=== PATIENT | female | born 1960 | race Caucasian/White ===

== ENCOUNTER 2020-08-11 06:30 | Outpatient (REF) | payer OTHER, SELFPAY | END 2020-08-11 06:31 | disposition home or self-care (01) | LOC: HO.LAB 06:30 | PROVIDERS: Visit Provider Internal Medicine | DX: Z20.828 Contact with and (suspected) exposure to other viral communicable diseases (principal) | CPT/HCPCS: C9803; U0003 ==

== ENCOUNTER 2020-08-17 07:36 | Emergency (ER) | payer OTHER, SELFPAY ==
[2020-08-17 07:43] VITALS: BP 181/96; PULSE 83; RESP 20; TEMP 36.8; O2SAT 99; BMI 26.6
--- NOTE | 2020-08-17 07:51 | ED.ABDPAIN ---
HPI - Abdominal Pain General Chief Complaint: Abdominal Pain Stated Complaint: ?kidney stone Time Seen by Provider: 08/17/20 07:51 Source: patient Mode of arrival: ambulatory Limitations: no limitations History of Present Illness MD elicited complaint: flank pain Pertinent past history: kidney stones Onset (ago): hour(s) (started this AM) Pain Consistency: constant Location: L flank Severity: similar to previous episodes Quality: stabbing Exacerbating factors: nothing Relieving factors: nothing Context: history of similar episodes Associated symptoms: nausea Related Data Previous Rx's Medication Instructions Recorded ondansetron 4 mg PO Q8H PRN #20 tab 08/17/20 oxycodone 5 mg PO Q6H PRN #14 tab 08/17/20 Allergies Allergy/AdvReac Type Severity Reaction Status Date / Time Sulfa (Sulfonamide AdvReac Joint Pain Verified 08/17/20 07:48 Antibiotics) Review of Systems Review of Systems Constitutional : No Fever, No Chills ENT/Mouth : No sore throat Eyes: No Eye Pain, No Swelling, No Redness Cardiovascular : No Chest Pain, No SOB Respiratory : No Cough, No Sputum, No Wheezing Gastrointestinal : positive Nausea, no Vomiting, No Diarrhea, positive abdominal pain Genitourinary : positive Dysuria, positive urinary frequency, no Hematuria, positive Flank Pain, no hesitancy Musculoskeletal : No joint pain, No Myalgias Skin : No Skin Lesions, No rash Neuro : No Weakness, No Numbness, No Headache Psych : No Anxiety/Panic, No Depression All other systems reviewed and are negative Physical Exam Vital Signs: Vital Signs: Last Vital Signs Temp 98.3 F 08/17/20 07:43 Pulse 62 08/17/20 08:44 Resp 16 08/17/20 08:44 BP 113/67 08/17/20 08:44 Pulse Ox 99 08/17/20 07:43 Body Mass Index 26.6 Appearance: Alert. Oriented X3. in pain, walking around, anxious, mild acute distress. Eyes: Pupils equal, round and reactive to light. ENT: Pharynx normal. Neck: Normal inspection. Neck supple. CVS: Normal heart rate and rhythm. Pulses normal. Respiratory: No respiratory distress. Breath sounds normal. Abdomen: Soft and mild L abdominal and L flank tttp Skin: Skin warm and dry. Normal skin color. Normal skin turgor. Extremities: No lower extremity edema. No calf ttp Neuro: Oriented X 3. No motor deficit. No sensory deficit. Course Course Course Narrative: no vomiting, pain well controlled. stable for DC MDM - Abdominal Pain MDM Narrative Medical decision making narrative: 60 yo female with hx of renal colic s/p stone extractions/lithotripsy followed by [facility] comes in with abrupt onset L flank pain - consistent with prior bouts of renal colic, at this time will need labs, UA, IV morphine for pain, IV Toradol - dispo per results and findings. Lab Data Result diagrams: 08/17/20 08:05 08/17/20 08:05 Labs: Lab Results 08/17/20 08/17/20 08/17/20 Range/Units 08:05 08:05 08:05 WBC 8.4 (4.8-10.8) X10*3/uL RBC 4.38 (4.20-5.50) X10*6/uL Hgb 13.3 (12.0-16.0) g/dl Hct 39.5 (37-47) % MCV 90.2 (80-98) fL MCH 30.4 (27.0-33.0) pg MCHC 33.7 (31.0-35.0) g/dl RDW 12.0 (11.0-16.0) % Plt Count 237 (160-400) X10*3/uL MPV 9.9 (9.4-12.3) fL Immature Gran % (Auto) 0.2 (0.0-0.4) % Neut % (Auto) 71.4 (45-73) % Lymph % (Auto) 21.0 (20-40) % Barnes % (Auto) 6.1 (2-11) % Eos % (Auto) 1.1 (0-4) % Baso % (Auto) 0.2 (0-2) % Lymph # (Auto) 1.8 (1.2-4.9) X10*3/uL Barnes # (Auto) 0.5 (0.1-1.2) X10*3/uL Eos # (Auto) 0.1 (0.0-0.4) X10*3/uL Baso # (Auto) 0.0 (0.0-0.2) X10*3/uL Abs Immat Gran (auto) 0.02 (0.00-0.03) X10*3/uL Absolute Neuts (auto) 6.0 (2.0-8.3) X10*3/uL Absolute Nucleated RBC 0.000 (0.0-0.012) X10*3/uL Nucleated RBC % (auto) 0.0 (0.0-0.2) /100WBC Hold Blue Top SEE NOTE Sodium 140 (135-145) mmol/L Potassium 4.0 (3.3-5.1) mmol/l Chloride 105 (96-108) mmol/L Carbon Dioxide 24 (22-29) mmol/L Anion Gap 15 (12-20) BUN 27 H (9-16) mg/dL Creatinine 0.76 (0.5-1.4) mg/dL Estim Creat Clear Calc 80.3 Estimated GFR > 60 Random Glucose 102 (60-115) mg/dL Calcium 9.4 (8.4-10.2) mg/dL Magnesium (1.6-2.6) mg/dL Total Bilirubin (0.0-1.0) mg/dL Direct Bilirubin (0.0-0.5) mg/dL AST (5-31) U/L ALT (0-31) U/L Alkaline Phosphatase (39-117) U/L Total Protein (6.5-8.0) g/dL Albumin (3.5-5.0) g/dL Lipase (8-78) U/L Urine Color Urine Appearance Urine pH (5.0-8.0) Ur Specific [place] (1.005-1.025) Urine Protein (NEG-TRACE) MG/DL Urine Glucose (UA) (NEG) MG/DL Urine Ketones (NEG) MG/DL Urine Blood (NEG) Urine Nitrite (NEG) Ur Leukocyte Esterase (NEG) Urine RBC (0) /HPF Urine WBC (0-4) /HPF Ur Squamous Epith Cells /LPF Urine Bacteria /LPF 08/17/20 08/17/20 Range/Units 08:05 08:05 WBC (4.8-10.8) X10*3/uL RBC (4.20-5.50) X10*6/uL Hgb (12.0-16.0) g/dl Hct (37-47) % MCV (80-98) fL MCH (27.0-33.0) pg MCHC (31.0-35.0) g/dl RDW (11.0-16.0) % Plt Count (160-400) X10*3/uL MPV (9.4-12.3) fL Immature Gran % (Auto) (0.0-0.4) % Neut % (Auto) (45-73) % Lymph % (Auto) (20-40) % Barnes % (Auto) (2-11) % Eos % (Auto) (0-4) % Baso % (Auto) (0-2) % Lymph # (Auto) (1.2-4.9) X10*3/uL Barnes # (Auto) (0.1-1.2) X10*3/uL Eos # (Auto) (0.0-0.4) X10*3/uL Baso # (Auto) (0.0-0.2) X10*3/uL Abs Immat Gran (auto) (0.00-0.03) X10*3/uL Absolute Neuts (auto) (2.0-8.3) X10*3/uL Absolute Nucleated RBC (0.0-0.012) X10*3/uL Nucleated RBC % (auto) (0.0-0.2) /100WBC Hold Blue Top Sodium (135-145) mmol/L Potassium (3.3-5.1) mmol/l Chloride (96-108) mmol/L Carbon Dioxide (22-29) mmol/L Anion Gap (12-20) BUN (9-16) mg/dL Creatinine (0.5-1.4) mg/dL Estim Creat Clear Calc Estimated GFR Random Glucose (60-115) mg/dL Calcium (8.4-10.2) mg/dL Magnesium 1.9 (1.6-2.6) mg/dL Total Bilirubin 0.6 (0.0-1.0) mg/dL Direct Bilirubin 0.2 (0.0-0.5) mg/dL AST 22 (5-31) U/L ALT 20 (0-31) U/L Alkaline Phosphatase 71 (39-117) U/L Total Protein 7.2 (6.5-8.0) g/dL Albumin 4.4 (3.5-5.0) g/dL Lipase 47 (8-78) U/L Urine Color YELLOW Urine Appearance CLEAR Urine pH 5.0 (5.0-8.0) Ur Specific [place] >= 1.030 H (1.005-1.025) Urine Protein NEG (NEG-TRACE) MG/DL Urine Glucose (UA) NEG (NEG) MG/DL Urine Ketones NEG (NEG) MG/DL Urine Blood 2+ H (NEG) Urine Nitrite NEG (NEG) Ur Leukocyte Esterase NEG (NEG) Urine RBC 5-9 H (0) /HPF Urine WBC 0 (0-4) /HPF Ur Squamous Epith Cells TRACE /LPF Urine Bacteria NONE /LPF Discharge Plan Discharge Clinical Impression: Calculus of kidney Patient Disposition: Home, Self-Care Instructions: Renal Colic (ED) Additional Instructions: on CT scan 3mm left sided stone likely just at bladder, there is a possible small aneurysm (dilation) of your R right artery - your doctor can follow up with a non emergent CT scan to further evaluate, this was an incidental finding. return to ED for any worsening symptoms or concerns IF NOT BETTER IN 2 DAYS PLEASE CALL YOUR UROLOGIST Prescriptions: New ondansetron 4 mg tablet,disintegrating 4 mg PO Q8H PRN (Reason: nausea and vomiting) Qty: 20 RF: 0 oxycodone 5 mg tablet 5 mg PO Q6H PRN (Reason: pain) Qty: 14 RF: 0 Stand Alone Forms: Work/School Release [facility] Past Medical History Attestation statement: The following information was validated with the patient. Medical History HTN (hypertension) Kidney stone Surgical History H/O lithotripsy History of extraction of renal calculus Social History Social History Alcohol intake: never Smoking Status: Never smoker Use of substances other than those prescribed or required for medical reasons: No Advance Directives: No Advance Directives Information Provided: Yes
--- NOTE | 2020-08-17 07:52 | CT_ITS ---
EXAMINATION: CT ABDOMEN AND PELVIS WITHOUT CONTRAST CLINICAL INFORMATION: Flank pain. Evaluate for stone. COMPARISON: None TECHNIQUE: Multidetector volumetric imaging was performed from the superior aspect of the liver through the pubic symphysis. Sagittal and coronal reformatted images were obtained on the technologist's workstation. This CT examination was performed using dose optimization techniques as appropriate, variously including the following: *Automated exposure control *Adjustment of mA and/or kV according to patient size (this includes techniques or standardized protocols for targeted exams where dose is matched to indication/reason for exam; i.e. extremities or head) *Use of iterative reconstruction technique DLP: 578 mGy-cm FINDINGS: LUNG BASES: The visualized lung bases are unremarkable. LIVER, GALLBLADDER, AND BILIARY TREE: The liver is normal in size, shape, and attenuation. No focal hepatic lesion or biliary ductal dilatation is present. The gallbladder is unremarkable with no evidence of radiopaque gallstones, gallbladder wall thickening, or obvious pericholecystic inflammatory changes. PANCREAS: Unremarkable. SPLEEN: Unremarkable. ADRENAL GLANDS: Unremarkable. KIDNEYS AND URETERS: There is moderate left hydronephrosis and left ureteral dilatation down to the bladder. There are multiple bilateral renal stones. There are approximately 10 stones in the left kidney, largest measuring 3 mm in the midpole. There are approximately 10 stones in the right kidney, largest measuring 3 mm in the lower pole. There are bilateral low-attenuation renal lesions probably representing cysts measuring 1.5 cm in the lower pole of the right kidney and 1 cm exophytic to the lateral upper to midpole of the left kidney. BLADDER: The bladder is not optimally distended. There is a 3 mm calcification in the left side of the bladder suggestive of a small left UPJ or bladder stone. GASTROINTESTINAL TRACT: There is diverticulosis of the colon. Small and large bowel is otherwise unremarkable. Stomach is unremarkable. ABDOMINAL WALL: There is a small umbilical hernia containing fat. LYMPH NODES: Normal. VASCULAR: There is a curvilinear right renal artery calcification questionable for a small aneurysm. This measures 8 mm. PELVIC VISCERA: Unremarkable. OSSEOUS STRUCTURES: There is a 4 mm anterior subluxation of L4 with respect to L5. There are degenerative changes of the spine. CT/CT abdomen pelvis wo con IMPRESSION: Moderate left hydronephrosis and ureteral dilatation down to the bladder from a 3 mm left UVJ or bladder stone. Small bilateral renal stones. Small probable bilateral renal cysts. Question small 8 mm right renal artery aneurysm. This could be better evaluated with CTA. Mild diverticulosis of the colon.
[2020-08-17] MEDS: Ketorolac Tromethamine 30 MG/ML VIAL IVPUSH (08:07)
[2020-08-17] MEDS: 0.9 % Sodium Chloride 1,000 ML 999 ML IVCONT (08:07)
[2020-08-17] MEDS: ondansetron HCL 4 MG/2 ML VIAL IVPUSH (08:07)
[2020-08-17] MEDS: Morphine Sulfate 4 MG/ML CARTRIDGE IVPUSH (08:07)
[2020-08-17 08:16] LABS: MANUAL DIFF FLAG NO
[2020-08-17 08:17] LABS: Basophils Percent Auto 0.2 % (0-2); Eosinophils Absolute Auto 0.1 X10*3/uL (0.0-0.4); Eosinophils Percent Auto 1.1 % (0-4); Hematocrit 39.5 % (37-47); Hemoglobin 13.3 g/dl (12.0-16.0); Imm Gran Abs Auto 0.02 X10*3/uL (0.00-0.03); Imm Gran Pct Auto 0.2 % (0.0-0.4); Lymphocytes Absolute Auto 1.8 X10*3/uL (1.2-4.9); Mean Corpuscular HGB Conc 33.7 g/dl (31.0-35.0); Mean Corpuscular Hemoglobin 30.4 pg (27.0-33.0); Mean Corpuscular Volume 90.2 fL (80-98); Mean Platelet Volume 9.9 fL (9.4-12.3); Monocytes Absolute Auto 0.5 X10*3/uL (0.1-1.2); Monocytes Percent Auto 6.1 % (2-11); Neutrophils Percent Auto 71.4 % (45-73); Platelet Count 237 X10*3/uL (160-400); Red Blood Count 4.38 X10*6/uL (4.20-5.50); White Blood Count 8.4 X10*3/uL (4.8-10.8)
[2020-08-17 08:33] LABS: Glucose Urine UA NEG (NEG); Leukocyte Esterase Urine NEG (NEG); Nitrite Urine NEG (NEG); Specific Gravity - Urine >= 1.030 (1.005-1.025); Urine Blood 2+ (NEG); Urine Ketones NEG (NEG); Urine Protein NEG (NEG-TRACE)
[2020-08-17 08:38] LABS: Appearance Urine CLEAR; Color Urine YELLOW
[2020-08-17 08:44] VITALS: BP 113/67; PULSE 62; RESP 16
[2020-08-17 08:49] LABS: Anion Gap 15 (12-20); Blood Urea Nitrogen 27 mg/dL (9-16); Calcium 9.4 mg/dL (8.4-10.2); Carbon Dioxide 24 mmol/L (22-29); Chloride 105 mmol/L (96-108); Creatinine Clr Calc Pharmacy 80.3; Estimated Glomerular Filt Rate > 60; Glucose Random 102 mg/dL (60-115); Sodium 140 mmol/L (135-145)
[2020-08-17 08:52] LABS: Alanine Aminotransferase 20 U/L (0-31); Albumin Level 4.4 g/dL (3.5-5.0); Alkaline Phosphatase 71 U/L (39-117); Aspartate Amino Transferase 22 U/L (5-31); Bilirubin Direct 0.2 mg/dL (0.0-0.5); Bilirubin Total 0.6 mg/dL (0.0-1.0); Lipase 47 U/L (8-78); Magnesium 1.9 mg/dL (1.6-2.6); Total Protein 7.2 g/dL (6.5-8.0)
[2020-08-17 08:54] LABS: Squamous Epithelial Cell Urine TRACE /LPF; WBC Urine 0 /HPF (0-4)
[2020-08-17] MEDS: oxyCODONE HCl Immed Release 5 MG TABLET 10 MG PO (09:50)
== END 2020-08-17 11:22 | disposition home or self-care (01) ==
PROVIDERS: Emergency Provider Emergency Medicine; PCP Internal Medicine
DX: N20.0 Calculus of kidney (principal); R10.9 Unspecified abdominal pain; Z79.899 Other long term (current) drug therapy
CPT/HCPCS: 36415; 74176; 80048; 80076; 81001; 83690; 83735; 85025; 96361; 96374; 96375; 99283; 99284; J1885; J2270; J2405

== ENCOUNTER 2024-01-07 15:41 | Outpatient (AMB) | payer OTHER, SELFPAY ==
[2024-01-07 16:38] VITALS: BP 146/78; PULSE 101; TEMP 36.4; O2SAT 98; BMI 27.2
--- NOTE | 2024-01-07 16:38 | MHC.OFFWIV ---
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 She states this started about 3 days. 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 Her right ear is blocked. Its also painful. [facility] Medical History HTN (hypertension) Kidney stone Surgical History History of extraction of renal calculus H/O lithotripsy Social History Alcohol intake: never Patient Tobacco Use Status: Never used Tobacco Physical Exam Vital Signs: Last Vital Signs Temp 97.6 F 01/07/24 16:38 Pulse 101 H 01/07/24 16:38 BP 146/78 H 01/07/24 16:38 Pulse Ox 98 01/07/24 16:38 Oxygen Delivery Method Room Air 01/07/24 16:38 BMI result Body Mass Index 27.2 HEENT Other: Right ear: Ear canal is full of wax. Even gentle probing is eliciting discomfirt. Assessment & Plan Assessment & Plan (1) Impacted cerumen of right ear: Code(s): H61.21 - Impacted cerumen, right ear Plan: Debrox to be used for softening of the cerumen. will remove the wax once the canal is non tender. Medications: Discontinued ondansetron Discontinued Reason: Patient no longer taking 4 mg PO Q8H PRN 20 tabs 0RF nausea and vomiting oxycodone Discontinued Reason: Patient no longer taking 5 mg PO Q6H PRN 14 tabs 0RF pain Coding Level of Care Code Est Pt Level 3 (33148) Diagnoses Impacted cerumen of right ear H61.21
== END 2024-01-07 17:07 | disposition home or self-care (01) ==
PROVIDERS: PCP Internal Medicine; Visit Provider Internal Medicine
DX: H61.21 Impacted cerumen, right ear (principal)
CPT/HCPCS: 99213

== ENCOUNTER 2024-01-10 08:02 | Outpatient (AMB) | payer OTHER, SELFPAY ==
--- OUTSIDE RECORDS SUMMARY | 2024-01-10 08:03 | XMS_ITS | Continuity of Care Document ---
Author Organization [facility] ter Address [address] [place] [id number]- Care Team Providers Care It Project Lead Name Role Phone Pamela Barney MD Primary Care Physician Encounter [facility] Date(s): 09/19/19 - 09/23/[address] [address]- [facility] Discharge Disposition: A-D/C Home Attending Physician: Royce Garza MD Admitting Physician: Thaddeus Miller MD Referring Physician: Thaddeus Miller MD Allergies, Adverse Reactions, Alerts Substance Reaction Severity Status sulfa drugs pain in legs Active Immunizations Not Given Vaccine Date Status Refusal Reason pneumococcal 23-valent vaccine 09/20/19 Not Given Patient Refuses Medications apixaban 5 mg oral tablet 1 tablet = 5 mg, By Mouth, 2 times a day, as directed on package labeling, # 20 tablet, 0 Refills, Maintenance, 07/25/19 4:32:25 EST, Tablet Start Date: 07/25/19 Stop Date: 08/04/19 Status: Ordered Augmentin 875 mg-125 mg oral tablet 1 tablet, By Mouth, Every 12 hours, for 12 days, # 24 tablet, 0 Refills, Acute 10/05/19 7:40:00 EST, 09/23/19 7:40:00 EST, Tablet, [facility], 168, cm, 09/23/19 0:43:00 EST, Height, 68.1, kg, 09/19/19 18:12:00 EST, Dry Weight Start Date: 09/23/19 Stop Date: 10/05/19 Status: Ordered diltiazem 120 mg/24 hours oral capsule, extended release 120 mg, 1, capsule, By Mouth, Daily, # 10 capsule, Refills 0, Tot. Refills 0, Maintenance, 194:31:44 EST, Print Requisition Start Date: 07/25/19 Stop Date: 08/04/19 Status: Ordered Fish Oil 1000 mg oral capsule 1 capsule = 1,000 mg, By Mouth, Daily, 0 Refills, Maintenance, 12/10/16 8:55:41 Start Date: 12/10/16 Status: Ordered Flonase 50 mcg/inh nasal spray 1 sprays, Nares, Both, Daily in AM, PRN Other, 0 Refills, Maintenance, 12/10/16 8:56:44, [place] Start Date: 12/10/16 Status: Ordered lisinopril 5 mg oral tablet 5 mg, 1, tablet, By Mouth, Daily, # 30 tablet, Refills 0, Maintenance, 07/25/19 0:57:50 EST Start Date: 07/25/19 Status: Ordered Multivitamin Tablet 1 tablet, By Mouth, Daily, 0 Refills, Maintenance, 12/10/16 8:55:22, Tablet Start Date: 12/10/16 Status: Ordered Vitamin C 500 mg oral tablet 1 tablet = 500 mg, By Mouth, Daily, 0 Refills, Maintenance, 12/10/16 8:56:32 Start Date: 12/10/16 Status: Ordered Results Radiology Reports * Exam Date Time Procedure Performing Provider Status 09/19/19 8:44 PM C-Arm < 1 Hour China Kaiser; Roseline (Verified) Notes: (C-Arm < 1 Hour) Reason For Exam: right cysto RESULT: C-Arm < 1 Hour Urethrocystography Retrograde, C-Arm < 1 Hour INDICATION: Reason: right cysto COMPARISON: None FINDINGS: Fluoroscopy time: 6.8 seconds. Exposure: 1.42 mGy. 11 intraprocedural C-arm images demonstrating placement of right ureterovesicular stent. Radiologist was not in attendance. Please see procedure report for full details. IMPRESSION: As above. I have personally reviewed the images and I agree with this report. WSN: [id number] Dictated By: Leon Gan MD Dictated Date/Time: 09/22/19 9:15 am Reviewed By: Dillan Jacobo MD Signed By: Dillan Jacobo MD Signed Date/Time: 09/22/19 9:20 am Transcribed By: KARTIK Transcribed Date/Time: 09/22/19 8:45 am * Exam Date Time Procedure Performing Provider Status 09/19/19 8:44 PM Urethrocystography Retrograde Lynette Kaiser (Verified) Notes: (Urethrocystography Retrograde) Reason For Exam: right cysto RESULT: Urethrocystography Retrograde Urethrocystography Retrograde, C-Arm < 1 Hour INDICATION: Reason: right cysto COMPARISON: None FINDINGS: Fluoroscopy time: 6.8 seconds. Exposure: 1.42 mGy. 11 intraprocedural C-arm images demonstrating placement of right ureterovesicular stent. Radiologist was not in attendance. Please see procedure report for full details. IMPRESSION: As above. I have personally reviewed the images and I agree with this report. WSN: [id number] Dictated By: Leon Gan MD Dictated Date/Time: 09/22/19 9:15 am Reviewed By: Dillan Jacobo MD Signed By: Dillan Jacobo MD Signed Date/Time: 09/22/19 9:20 am Transcribed By: KARTIK Transcribed Date/Time: 09/22/19 8:45 am Vital Signs Most recent to oldest [Reference Range]: 1 2 3 Height 168 cm (09/23/19 12:43 AM) 168 cm (09/22/19 12:15 AM) 168 cm (09/20/19 12:15 AM) Weight 68.1 kg (09/19/19 7:38 PM) 68.1 kg (09/19/19 6:00 PM) Oxygen Saturation [94-100 %] 98 % (09/23/19 6:00 AM) 97 % (09/23/19 12:43 AM) 98 % (09/22/19 2:00 PM) Pulse Rate [55-90 bpm] 69 bpm (09/23/19 6:00 AM) 73 bpm (09/23/19 12:43 AM) 80 bpm (09/22/19 2:00 PM) Body Mass Index [18.5-24.99] 24.13 (09/19/19 7:38 PM) 24.13 (09/19/19 6:00 PM) Blood Pressure [90-138/55-84 mm Hg] 138/77mm Hg (09/23/19 6:00 AM) 132/83mm Hg (09/23/19 12:43 AM) 138/84mm Hg (09/22/19 2:00 PM) Respiratory Rate [16-30 br/min] 17 br/min (09/23/19 6:00 AM) 18 br/min (09/23/19 12:43 AM) 16 br/min (09/22/19 2:00 PM) Temperature [96.8-100.4 DegF] 98.7 DegF (09/23/19 6:00 AM) 97.9 DegF (09/23/19 12:43 AM) 98.9 DegF (09/22/19 2:00 PM) Mode of Delivery (Oxygen) Room air (09/23/19 6:00 AM) Room air (09/23/19 12:43 AM) Room air (09/22/19 2:00 PM) Blood pressure sites Arm, right (09/23/19 6:00 AM) Arm, right (09/23/19 12:43 AM) Arm, right (09/22/19 2:00 PM) Temperature Route Oral (09/23/19 6:00 AM) Oral (09/23/19 12:43 AM) Oral (09/22/19 2:00 PM) Dry Weight 68.1 kg (09/19/19 6:00 PM) Sensory deficits None (09/19/19 6:00 PM) Mobility assistance Independent (09/19/19 6:00 PM) Social History Social History Type Response Smoking Status Never (less than 100 in lifetime) entered on: 07/25/19 Sex
--- OUTSIDE RECORDS SUMMARY | 2024-01-10 08:03 | XMS_ITS | Continuity of Care Document ---
Author Organization [facility] al Address [address] [place] [address]- Care Team Providers Care Supervisor [employer] Name Role Phone Ector GUPTA, Pamela Nickerson Primary Care Physician [phone] Encounter [facility] Date(s): 09/19/19 - 09/19/[address] [address]- [place] Discharge Disposition: Transferred to short-term general hospit Attending Physician: Isai Welch DO Admitting Physician: Isai Welch DO Referring Physician: Not on Staff, Referring MD Allergies, Adverse Reactions, Alerts Substance Reaction Severity Status sulfa drugs pain in legs Active Medications apixaban 5 mg oral tablet 1 tablet = 5 mg, By Mouth, 2 times a day, as directed on package labeling, # 20 tablet, 0 Refills, Maintenance, 07/25/19 4:32:25 EST, Tablet Start Date: 07/25/19 Stop Date: 08/04/19 Status: Ordered diltiazem 120 mg/24 hours oral [...] PRN Other, 0 Refills, Maintenance, 12/10/16 8:56:44, [place] Start Date: 12/10/16 Status: Ordered lisinopril 5 [...] 12/10/16 8:56:32 Start Date: 12/10/16 Status: Ordered Vital Signs Most recent to oldest [Reference Range]: 1 2 3 Height 168 cm (09/19/19 3:03 PM) 168 cm (09/19/19 12:36 PM) 168 cm (09/19/19 8:39 AM) Weight 68.1 kg (09/19/19 3:03 PM) 68.1 kg (09/19/19 12:36 PM) 68.1 kg (09/19/19 8:39 AM) Oxygen Saturation [94-100 %] 98 % (09/19/19 3:03 PM) 100 % (09/19/19 12:36 PM) 98 % (09/19/19 8:38 AM) Pulse Rate [55-90 bpm] 99 bpm *H* (09/19/19 3:03 PM) 82 bpm (09/19/19 12:36 PM) 106 bpm *H* (09/19/19 8:38 AM) Body Mass Index [18.5-24.99] 24.13 (09/19/19 3:03 PM) 24.13 (09/19/19 12:36 PM) 24.13 (09/19/19 8:38 AM) Blood Pressure [90-138/55-84 mm Hg] 144/82mm Hg *H* (09/19/19 3:03 PM) 104/64mm Hg (09/19/19 12:36 PM) 151/82mm Hg *H* (09/19/19 8:38 AM) Respiratory Rate [16-30 br/min] 24 br/min (09/19/19 3:03 PM) 19 br/min (09/19/19 12:36 PM) 18 br/min (09/19/19 10:05 AM) Temperature [96.8-100.4 DegF] 101.1 DegF *H* (09/19/19 3:03 PM) 99.2 DegF (09/19/19 12:36 PM) 99.3 DegF (09/19/19 8:38 AM) Mode of Delivery (Oxygen) Room air (09/19/19 3:03 PM) Room air (09/19/19 12:36 PM) Room air (09/19/19 8:38 AM) Blood pressure sites Arm, right (09/19/19 3:03 PM) Arm, left (09/19/19 12:36 PM) Arm, left (09/19/19 8:38 AM) Temperature Route Oral (09/19/19 3:03 PM) Oral (09/19/19 12:36 PM) Oral (09/19/19 8:38 AM) Dry Weight 68.1 kg (09/19/19 3:03 PM) 68.1 kg (09/19/19 12:36 PM) 68.1 kg (09/19/19 8:39 AM) Social History Social History Type Response Smoking Status Never (less than 100 in lifetime) entered on: 07/25/19 Sex
--- OUTSIDE RECORDS SUMMARY | 2024-01-10 08:03 | XMS_ITS | Continuity of Care Document ---
Author Organization [facility] ter Address [address] [id number]- Care Team Providers Care Facepiece Line Supervisor Name Role Phone Pamela Barney MD Primary Care Physician [phone] [place] [facility] 10/23/19 - 10/24/[address] [id number] Discharge Disposition: A-D/C Home Attending Physician: Morris Singh MD Admitting Physician: Morris Singh MD Referring Physician: Morris Singh MD Allergies, Adverse Reactions, Alerts Substance Reaction [...] Date: 07/25/19 Stop Date: 08/04/19 Status: Ordered Colace sodium 100 mg oral capsule 100 mg, 1, capsule, By Mouth, 2 times a day, PRN, # 20 capsule, Refills 0, Tot. Refills 0, Maintenance, for constipation, 10/24/19 8:26:00 EST, Route to Pharmacy Electronically, [facility], 162.56, cm, 10/13/19 12:21:00 EST, Height, 68.4... Start Date: 10/24/19 Status: Ordered Flonase 50 mcg/inh nasal spray 1 sprays, Nares, Both, Daily in AM, PRN Other, 0 Refills, Maintenance, 12/10/16 8:56:44, [place] Start Date: 12/10/16 Status: Ordered lisinopril 5 mg oral tablet 5 mg, 1, tablet, By Mouth, Daily, # 30 tablet, Refills 0, Maintenance, 07/25/19 0:57:50 EST Start Date: 07/25/19 Status: Ordered Macrobid macrocrystals-monohydrate 100 mg oral capsule 1 capsule = 100 mg, By Mouth, 2 times a day, for 3 days, # 6 capsule, 0 Refills, Acute 10/27/19 8:24:00 EST, 10/24/19 8:24:00 EST, Capsule Start Date: 10/24/19 Stop Date: 10/27/19 Status: Ordered Macrobid macrocrystals-monohydrate 100 mg oral capsule 1 capsule = 100 mg, By Mouth, 2 times a day, for 3 days, # 6 capsule, 0 Refills, Acute 10/30/19 8:24:00 EST, 10/27/19 8:24:00 EST, Capsule, [facility], 162.56, cm, 10/13/19 12:21:00 EST, Height, 68.4, kg, 10/23/19 7:44:00 EST, Dry Weight Start Date: 10/27/19 Stop Date: 10/30/19 Status: Ordered Multivitamin Tablet 1 tablet, By Mouth, Daily, 0 Refills, Maintenance, 12/10/16 8:55:22, Tablet Start Date: 12/10/16 Status: Ordered oxybutynin 10 mg/24 hr oral tablet, extended release 1 tablet = 10 mg, By Mouth, Daily, # 30 tablet, 0 Refills, Maintenance, 10/13/19 11:40:00 EST, ER Tablet Start Date: 10/13/19 Status: Ordered oxyCODONE 5 mg oral tablet 5 mg, 1, tablet, By Mouth, Every 6 hours, PRN, for 3 days, # 8 tablet, Refills 0, Tot. Refills 0, Acute 10/27/19 8:24:00 EST, Pain , Severe, 10/24/19 8:24:00 EST, Print Requisition, Partial fill uponpatient request Start Date: 10/24/19 Stop Date: 10/27/19 Status: Ordered Vitamin C 500 mg oral tablet 1 tablet = 500 mg, By Mouth, Daily, 0 Refills, Maintenance, 12/10/16 8:56:32 Start Date: 12/10/16 Status: Ordered Problem List Condition Effective Dates Status Health Status Inform ant Staghorn renal calculus(Confirmed) Active Results Radiology Reports * Exam Date Time Procedure Performing Provider Status 10/23/19 10:54 AM C-Arm > 1 Hour Kindra Alston; Aut h (Verified) Notes: (C-Arm > 1 Hour) Reason For Exam: right renal calculus, right percutaneous nephrolithotomy RESULT: C-Arm > 1 Hour Urethrocystography Retrograde, C-Arm > 1 Hour INDICATION: Reason: right renal calculus, right percutaneous nephrolithotomy COMPARISON: 09/19/2019 FINDINGS: The first, precontrast image shows a vague opacity overlying the proximal loop of the ureteral stent and percutaneous stent in the renal pelvis. The renal pelvis and ureter are opacified showing no other filling defects. The tract through the percutaneous approach is dilated with a balloon. Subsequently the contrast isremoved. The stone is no longer evident. A wire extends from the nephrostomy opening down the ureter to the bladder. Contrast is seen in the bladder. No opacities are seen along the course of the wires. IMPRESSION: As above. WSN: [id number] Dictated By: Mark Cruz MD Dictated Date/Time: 10/23/19 1:45 pm Reviewed By: Mark Cruz MD Signed By: Mark Cruz MD Signed Date/Time: 10/23/19 1:45 pm Transcribed By: KARTIK Transcribed Date/Time: 10/23/19 1:38 pm * Exam Date Time Procedure Performing Provider Status 10/23/19 10:54 AM Urethrocystography Retrograde Kindra Alston; Auth (Verified) Notes: (Urethrocystography Retrograde) Reason For Exam: right renal calculus, right percutaneous nephrolithotomy RESULT: Urethrocystography Retrograde Urethrocystography Retrograde, C-Arm > 1 Hour INDICATION: Reason: right renal calculus, right percutaneous nephrolithotomy COMPARISON: 09/19/2019 FINDINGS: The first, precontrast image shows a vague opacity overlying the proximal loop of the ureteral stent and percutaneous stent in the renal pelvis. The renal pelvis and ureter are opacified showing no other filling defects. The tract through the percutaneous approach is dilated with a balloon. Subsequently the contrast isremoved. The stone is no longer evident. A wire extends from the nephrostomy opening down the ureter to the bladder. Contrast is seen in the bladder. No opacities are seen along the course of the wires. IMPRESSION: As above. WSN: [id number] Dictated By: Mark Cruz MD Dictated Date/Time: 10/23/19 1:45 pm Reviewed By: Mark Cruz MD Signed By: Mark Cruz MD Signed Date/Time: 10/23/19 1:45 pm Transcribed By: KARTIK Transcribed Date/Time: 10/23/19 1:38 pm Vital Signs Most recent to oldest [Reference Range]: 1 2 3 Oxygen Saturation [94-100 %] 99 % (10/24/19 11:51 AM) 100 % (10/24/19 7:43 AM) 100 % (10/24/19 3:52 AM) Pulse Rate [55-90 bpm] 93 bpm *H* (10/24/19 11:51 AM) 84 bpm (10/24/19 7:43 AM) 74 bpm (10/24/19 3:52 AM) Blood Pressure [90-138/55-84 mm Hg] 109/52mm Hg (10/24/19 11:51 AM) 134/79mm Hg (10/24/19 7:43 AM) 137/79mm Hg (10/24/19 7:25 AM) Respiratory Rate [16-30 br/min] 18 br/min (10/24/19 11:51 AM) 16 br/min (10/24/19 7:43 AM) 16 br/min (10/24/19 7:23 AM) Temperature [96.8-100.4 DegF] 98.3 DegF (10/24/19 11:51 AM) 98.1 DegF (10/24/19 7:43 AM) 98.2 DegF (10/24/19 3:52 AM) Liters per Minute 3 L/min (10/23/19 12:00 PM) 3 L/min (10/23/19 11:15 AM) 6 L/min (10/23/19 11:00 AM) Mode of Delivery (Oxygen) Room air (10/24/19 11:51 AM) Room air (10/24/19 7:43 AM) Room air (10/24/19 3:52 AM) Blood pressure sites Arm, right (10/24/19 11:51 AM) Arm, left (10/24/19 7:43 AM) Arm, right (10/24/19 3:52 AM) Temperature Route Oral (10/24/19 11:51 AM) Oral (10/24/19 7:43 AM) Oral (10/24/19 3:52 AM) Dry Weight 68.4 kg (10/23/19 7:44 AM) Dry Weight Obtained Via Standing scale (10/23/19 7:44 AM) Social History Social History Type Response Smoking Status Never (less than 100 in lifetime) entered on: 07/25/19 Sex
[2024-01-10 08:23] VITALS: BP 112/70; PULSE 90; O2SAT 98; BMI 27.1
--- NOTE | 2024-01-10 08:23 | AM.OFFWIN_ITS ---
Intake Vital Signs 01/10/24 08:23 Height 5 ft 6 in Weight 168 lb BMI 27.1 BP 112/70 Blood Pressure Location Rt brachial Position Sitting Pulse 90 Pulse Source Pulse Oximeter Pulse Oximetry (%) 98 Oxygen Delivery Method Room Air Intake Visit Reasons: EP ear pain Intake Note: pt is here for ear pain, came sunday and started ear drops and think she may have an infection Patient Tobacco Use Status: Never used Tobacco Allergies Sulfa (Sulfonamide Antibiotics) Adverse Reaction (Verified 01/10/24 08:25) Joint Pain Do you need a note to return to daycare/school/sports/work: No HPI HPI Comments History of Present Illness Details 64 y/o female patient who presents to [facility] in clinic with c/o right ear discomfort. Pt was seen here at [facility] 01/06 for similar concern, and she was found to have right ear cerumen impaction. She was prescribed Debrox. Pt has an ENT doctor that she sees routinely but he is fully booked until March. [facility] Medical History HTN (hypertension) Kidney stone Surgical History History of extraction of renal calculus H/O lithotripsy Social History Alcohol intake: never Patient Tobacco Use Status: Never used Tobacco Review of Systems Const All systems reviewed & are unremarkable except as noted in HPI and below Physical Exam Vital Signs: Last Vital Signs Pulse 90 01/10/24 08:23 BP 112/70 01/10/24 08:23 Pulse Ox 98 01/10/24 08:23 Oxygen Delivery Method Room Air 01/10/24 08:23 BMI result Body Mass Index 27.1 Const General: no acute distress Nutritional Appearance: overweight Orientation/consciousness: patient oriented x3 HEENT Head: Yes normocephalic Ears: external ears normal, TM normal on the left and TM abnormal obstructed by cerumen on the right and scarred (right ear canal ) on the right General nose exam: Normal nasal mucous membranes and turbinates present Mouth: moist mucous membranes Neuro General: patient oriented x3, gait normal and moves all extremities Psych Speech and movement: Normal speech and movement present Office Procedures Cerumen Removal From which ear canal was the cerumen removed: right Removal: irrigation [id number] Irrigation/Lavage Assessment & Plan Assessment & Plan (1) Impacted cerumen of right ear: Code(s): H61.21 - Impacted cerumen, right ear Plan: - Unable to visualize TM, scar tissue or plaque inner canal - Pt was able to tolerate ear lavage, but very discomfort - Discomfort with Otoscope examination. - Acetaminophen for pain relief - Continue with Debrox - F/U with ENT Coding Level of Care Code Est Pt Level 4 (15926) Diagnoses Impacted cerumen of right ear H61.21 CPT Codes Office Procedure - CPT: 36736-Drt Irrigation/Lavage ([id number]) Time Spent (min) 20
== END 2024-01-10 09:30 | disposition home or self-care (01) ==
PROVIDERS: PCP Internal Medicine; Visit Provider Nurse Practitioner Family
DX: H61.21 Impacted cerumen, right ear (principal)
CPT/HCPCS: 69209; 99213

== ENCOUNTER 2024-11-20 08:03 | Outpatient (AMB) | payer OTHER, SELFPAY ==
--- NOTE | 2024-11-20 08:04 | AM.OFFWIN_ITS ---
Intake Vital Signs 11/20/24 08:06 Weight 168 lb 9 oz BP 114/78 Blood Pressure Location Lt brachial Position Sitting Pulse 83 Pulse Source Pulse Oximeter Temp 97.8 F Temp Source Oral Pulse Oximetry (%) 97 Oxygen Delivery Method Room Air Intake Visit Reasons: EP Ear ache, body ache, headache Intake Note: Patient here for body aches, right ear pain, head aches that started a couple of days ago now. Patient Tobacco Use Status: Never used Tobacco Allergies Sulfa (Sulfonamide Antibiotics) Adverse Reaction (Verified 11/20/24 08:14) Joint Pain Do you need a note to return to daycare/school/sports/work: Yes HPI HPI Comments History of Present Illness Details History The patient is a 64-year-old female presenting with fatigue and right ear discomfort. The fatigue began the previous day and was accompanied by headaches but no fevers, vomiting, cough, or congestion. Discomfort in the right ear may be linked to wax impaction as she has chronic was issues. Multiple colleagues at her workplace are ill, but their conditions are unspecified. The patient has been working long hours, potentially contributing to her symptoms. Physical Exam General: Cooperative, healthy appearing, comfortable and no acute distress Orientation/consciousness: Patient oriented x3 Limitations: No limitations Head: Normal to inspection Ears: Hearing grossly normal bilaterally, external ears normal and TM's normal bilaterally, right TM cerumen impaction Nose: Normal external nose present, Normal nares present and No nasal discharge present Face and sinus: Normal facial exam and Yes sinuses nontender, slight tenderness noted Mouth: Normal oral and palatal mucosa present and moist mucous membranes Throat: Yes tonsils normal, Yes uvula midline. Posterior oropharynx not erythematous Eyes: Appearance normal, both eyes and all related structures Neck: Normal visual inspection Respiratory: Clear to auscultation bilaterally. Normal respiratory effort, able to speak in complete sentences, no respiratory distress, not tachypneic, no tripod positioning and no use of accessory muscles Cardiovascular: Regular rate and rhythm. Normal S1 and S2 Skin: No rashes or lesions noted Neuro: Patient oriented x3 Extremities: Normal to inspection and Yes no clubbing, cyanosis or edema [facility] Medical History HTN (hypertension) Kidney stone Surgical History History of extraction of renal calculus H/O lithotripsy Social History Alcohol intake: never Patient Tobacco Use Status: Never used Tobacco Review of Systems Const All systems reviewed & are unremarkable except as noted in HPI and below Physical Exam Vital Signs: Last Vital Signs Temp 97.8 F 11/20/24 08:06 Pulse 83 11/20/24 08:06 BP 114/78 11/20/24 08:06 Pulse Ox 97 11/20/24 08:06 Oxygen Delivery Method Room Air 11/20/24 08:06 Assessment & Plan Assessment & Plan (1) Fatigue: Code(s): R53.83 - Other fatigue Qualifiers: Fatigue type: due to excessive exertion Encounter type: initial encounter Qualified Code(s): T73.3XXA - Exhaustion due to excessive exertion, initial encounter Plan: VSS, pt well appearing and PE unremarkable. The patient may benefit from flushing the right ear to resolve any wax impaction causing discomfort.However, she declined ear flushig and understands I am unable to assess the right ear for infection. No immediate signs of infection were noted; thus, close observation of symptoms post-cleaning is necessary. Regarding her fatigue, recommending rest is crucial, given her high work demands, to facilitate recovery. She declined testing for flu, covid and rsv due to cost concerns experienced previously. Continued monitoring of symptoms and patience in symptom resolution are advised. Patient was informed and verbally consented to the use of an ambient scribe for clinic note documentation during this visit (2) Impacted cerumen, right ear: Code(s): H61.21 - Impacted cerumen, right ear Plan: as above Coding Level of Care Code New Pt Level 3 (19815) Diagnoses Fatigue due to excessive exertion, initial encounter T73.3XXA Fatigue type: due to excessive exertion Encounter type: initial encounter Impacted cerumen, right ear H61.21
[2024-11-20 08:06] VITALS: BP 114/78; PULSE 83; TEMP 36.6; O2SAT 97
--- OUTSIDE RECORDS SUMMARY | 2024-11-20 08:10 | XMS_ITS | Clinical Summary ---
Author Organization [facility] [place] [address] Phone Care Team Providers Care Hands And Dial Inspector Name Role Phone Nancy Ojeda MD Primary Care Provider [phone] Allergies Active Allergy Reactions Criticality Noted Date Comments Cat Dander 05/28/2012 Other 05/28/2012 Sulfa (Sulfonamide Antibiotics) 03/2005 Medications CRANBERRY ORAL Take by mouth. Active malxc-1d-alm-ep a-fish oil-D3 (Fish Oil-Vit D3) 360 mg-1,200 mg -1,000 unit capsule Take 1 capsule by mouth 1 (one) time each day. Active multivitamin (MULTIPLE VITAMINS ORAL) Take 1 capsule by mouth 1 (one) time each day. Active aspirin 81 mg EC tablet Take 1 tablet (81 mg total) by mouth. Active acyclovir (ZOVIRAX) 5 % ointment Apply to sore every 3 hours while awake. 9 Active L.acid/B.animal is,bifidum/FOS (PROBIOTIC COMPLEX ORAL) Take by mouth. Active ascorbic acid (VITAMIN C) 1,000 mg tablet Take by mouth. Active lisinopriL (PRINIVIL,ZESTR IL) 5 mg tablet Take 1 tablet (5 mg total) by mouth 1 (one) time each day. 30 each 2 5 01/28/20 25 Active lisinopriL (PRINIVIL,ZESTR IL) 5 mg tablet Take 1 tablet (5 mg total) by mouth. 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 Esquivel) 10/2019; felt to be due to dehydration/illness/stress. Eliquis had been started in hospital; was discontinued. No further episodes so far Syncope 12/18/2016 Finger deformity, acquired 08/28/2016 Essential hypertension, benign 08/16/2005 Kidney stone 08/16/2005 Overview (11/14/2023): May 2005 09/29/2019 - obstructing right ureteral calculus s/p stent and stone removal (Dr. Singh); supposed to have percutaneous nephrolithotomy for large hard right renal pelvic stone 10/2019 Pain in joint, shoulder region 08/16/2005 Encounters Date Type Department Care Team Description 10/29/2024 Nurse Triage Adult Medicine [address] [phone] Jen Bro, RN 10/28/2024 Telephone Adult Medicine [address] [phone] Jen Bro, RN from Last 3 Months Immunizations Name Administration Dates Next Due Influenza Quadravalent, MDCK , 0.5ml, preservative free (Flucelvax) 6mo and older 08/17/2022,06/27/2021,07/31/2019 Influenza Quadravalent, MDCK , 0.5ml, with preservative (Flucelvax) 6mo and older 05/27/2018 Influenza trivalent, with pr eservative (Fluzone; Afluria) 6mo and older 08/16/2015 Td Tetanus diptheria (Tdvax) 7yo and older 06/12 Tdap Tetanus diptheria acell ular pertussis (Boostrix; Adacel) 7yo and older 09/09/2013 Surgical History Surgery Date Site/Laterality Comments OTHER SURGICAL HISTORY PROCEDURE: HISTORICAL CA BASAL CELL; COMMENT: upper lip and left arm - rem. 12/16 OTHER SURGICAL HISTORY 03/22/2012 PROCEDURE: GLOBAL ESWL KIDNEY; COMMENT: left renal stone COLONOSCOPY 11/22/2007 PROCEDURE: HISTORICAL COLONOSCOPY; COMMENT: normal; repeat in five years COLONOSCOPY 11/22/2012 PROCEDURE: COLOREC CANC SCRN,COLONOSCPY HI RISK; COMMENT: tics; repeat in 5 yrs COLONOSCOPY 01/14/2018 PROCEDURE: COLOREC CANC SCRN,COLONOSCPY HI RISK; COMMENT: tics; repeat in 5 yrs OTHER SURGICAL HISTORY 10/23/2019 Right PROCEDURE: AR PERQ NL/PL LITHOTRP SIMPLE UP TO 2 CM 1 LOCATION; COMMENT: Samantha HART - right percutaneous nephrolithotomy OTHER SURGICAL HISTORY 01/2024 Bilateral PROCEDURE: MAMMOGRAM, SCREENING, BOTH BREASTS COLONOSCOPY 11/2023 PROCEDURE: HISTORICAL COLONOSCOPY Medical History Medical History Date Comments Nephritis and nephropathy, n ot specified as acute or chronic, with unspecified pathological lesion in kidney 06/12/2006 DX:Nephritis and nephropathy , not specified as acute or chronic, with unspecified pathological lesion in kidney Historical Medical DX 10/11/2007 DX:Other a nd unspecified malignant neoplasm of skin of other and unspecified parts of face; COMMENT: BCC Nevus, non-neoplastic DX:Nevus, non-neoplastic Unspecified essential hypertension 06/12/2006 DX:Unspecified essential hypertension Actinic lentigo DX:Actinic lenti go; COMMENT: not actively seeing dermatology Urolithiasis DX:Urolithiasis; COMMENT: s/p lithotripsy; [facility] [place] [place] xray 2010, stable Abnormal glandular Papanicol aou smear of cervix 08/16/2005 DX:Abnormal glandular Papani colaou smear of cervix Other specified personal his tory presenting hazards to health(V15.89) DX:Other specifie d personal history presenting hazards to health(V15.89); COMMENT: basal cell-3 areas (arm ,face & abd.) Essential hypertension, benign 08/16/2005 D X:Essential hypertension, benign Family History Medical History Relation Name Comments Alcohol/Drug Father cirrhosis Hypertension Mother ca colon, macul ar degeneration Colon cancer Mother's side x 2 uncles and 1 aunt all from Colon CA Breast cancer Neg Hx Heart attack Neg Hx Ovarian cancer Neg Hx Relation Name Status Comments Father (Age 49) Maternal Grandfather Maternal Grandmother Mother Alive Mother's side Paternal Grandfather Paternal Grandmother Social History Tobacco Use Types Packs/Day Years Used Date Smoking Tobacco: Former Cigarettes Q uit: 09/10/1982 Smokeless Tobacco: Never Alcohol Use Standard Drinks/Week Comments Yes 0 (1 standard drink = 0.6 oz pur e alcohol) Comments Unknown Sex and Gender Information Value Date Recorded Sex Assigned at Female 11/05/2024 8:37 AM EST Legal Sex Female 5:34 PM EST Gender Identity Female 11/05/2024 8:37 AM EST Sexual Orientation Straight 11/05/2024 8: 37 AM EST Obstetrics History Last Filed Vital Signs Vital Sign Reading Time Taken Comments Blood Pressure 130/72 05/20/2024 4:10 PM EDT Pulse 72 05/20/2024 4:10 PM EDT Temperature - - Respiratory Rate - - Oxygen Saturation - - Inhaled Oxygen Concentration - - Weight 76.5 kg (168 lb 9.6 oz) 05/20/2024 4:10 P M EDT Height 167.6 cm (5' 6 ) 05/20/2024 4:10 PM EDT Body Mass Index 27.21 05/20/2024 4:10 PM EDT Plan of Treatment Upcoming Encounters Date Type Department Care Team (Late st Contact Info) Description 01/26/2025 7:40 AM EDT Appointment Radiology Department - [address] [phone] 07/06/2025 3:00 PM EDT Office Visit Adult Medicine [place] [address] [phone] Nancy Ojeda MD [address] [place] [address] Health Maintenance Due Date Last Done Comments Cervical Cancer Screening: HPV 01/02/1980 Pneumococcal Vaccine: 50+ Years (1 of 1 - PCV) 2009 Zoster Vaccines (1 of 2) 2009 Depression Screening 08/19/2022 Hepatitis C Screening 08/19/2022 Osteoporosis Screening (Bone Density Screening) 08/19/2022 Social Influencers of Health Screening 08/19/2022 Hypertension/CHF/CAD Annual BMP Blood Test 08/20/2022 Colorectal Cancer Screening: Colonoscopy 01/14/2023 01/14/2018 DTaP,Tdap,and Td Vaccines (3 - Td or Tdap) 09/09/2023 09/09/2013, 06/12/2006 Falls Risk Assessment 01/02/2024 COVID-19 Vaccine ( season) 2024 10/15/2021, 01/29/2021, 01/08/2021 Influenza Vaccine (#1) 2024 , 06/27/2021, 07/31/2019, Additional history exists Breast Cancer Screening 01/13/2026 01/14/20, 01/14/2024, 01/08/2023, Additional history exists Cholesterol Screening (Lipid Panel) 12/05/2027 12/04/2022 RSV Immunization Patients 60+ Years Old (1 - 1-dose 75+ series) 2034 HIB Vaccines Aged Out No longer eligi ble based on patient's age to complete this topic HPV Vaccines Aged Out No longer eligi ble based on patient's age to complete this topic Hepatitis A Vaccines Aged Out No long er eligible based on patient's age to complete this topic Hepatitis B Vaccines Aged Out No long er eligible based on patient's age to complete this topic IPV Vaccines Aged Out No longer eligi ble based on patient's age to complete this topic MMR Vaccines Aged Out No longer eligi ble based on patient's age to complete this topic Meningococcal ACWY Vaccine Aged Out N o longer eligible based on patient's age to complete this topic Meningococcal B Vacine Aged Out No lo nger eligible based on patient's age to complete this topic Pneumococcal Vaccine: Pediatrics (0 to 5 Years) and At-Risk Patients (6 to 64 Years) Aged Out No longer eligible based on patient's age to complete this topic RSV Immunization Patients Under 20 months Aged Out No longer eligible based on patient's age to complete this topic Varicella Vaccines Aged Out No longer eligible based on patient's age to complete this topic Procedures Procedure Name Priority Date/Time Associated Diagnosis Comments SCREENING MAMMOGRAPHY BI 2-VIEW BREAST INC CAD Routine 01/14/2024 7:54 AM EDT Encounter for screening mammogram for malignant neoplasm of breast LIPID PANEL Routine 12/04/2022 HM COLONOSCOPY Routine 01/14/2018 from Last 3 Months or Most Recently Relevant to Health Maintenance Results * SCREENING MAMMOGRAPHY BI 2-VIEW BREAST INC CAD (01/14/2024 7:54 AM EDT) Anatomical Region Laterality Modality Radiographic Lorie ging 01/08/2023 7:54 AM EDT Narrative 01/14/2024 12:53 PM EDT This is a summary report. The complete report is available in the patient's medical record. If you cannot access the medical record, please contact the sending organization for a detailed fax or copy. Full field digital screening 2D C views and tomosynthesis mammography, reviewed with CAD and compared to previous. The breasts are composed of fatty and fibroglandular tissue. ??No suspicious mass, architectural distortion or suspicious calcifications are identified. IMPRESSION: : No mammographic evidence of malignancy. BIRADS 1-Negative; N. 5 year breast cancer risk assessment 1.3 % Lifetime breast cancer risk assessment 5.0 % Breast cancer risk category Low (<15%) Procedure Note Amy Dumont MD - 04/28/2024 This is a summary report. The complete report is available in thepatient's medical record. If you cannot access the medical record, pleasecontact the sending organization for a detailed fax or copy. Full field digital screening 2D C views and tomosynthesis mammography,reviewed with CAD and compared to previous. The breasts are composed offatty and fibroglandular tissue. No suspicious mass, architecturaldistortion or suspicious calcifications are identified. IMPRESSION: : No mammographic evidence of malignancy. BIRADS 1-Negative; N. 5 year breast cancer risk assessment 1.3 % Lifetime breast cancer risk assessment 5.0 % Breast cancer risk category Low (<15%) Nancy Ojeda MD IMG XR PROCEDURES Final Result * Lipid panel (12/04/2022) Pathologist [facility] Triglycerides 99 mg/dL Cholesterol 49 mg/dL HDL 80 mg/dL LDL Cholesterol 1.9 mg/dL Blood Venous blood specimen / Unknown Historical Provider LAB BLOOD ORDERABLES Dilia l Result * Colonoscopy (01/14/2018) Pathologist [facility] Colonoscopy normal Comment:normal Anatomical Region Laterality Modality Other Historical Provider HEALTH MAINTENANCE Final Result from Last 3 Months or Most Recently Relevant to Health Maintenance Care Teams Hands And Dial Inspector Relationship Specialty Start Date End Date Nancy Ojeda MD [address] [place] [address] PCP - General Internal Medicine 02/08/21
--- OUTSIDE RECORDS SUMMARY | 2024-11-20 08:10 | XMS_ITS | Encounter Summary ---
Author Organization [facility] [place] [address] Care Team Providers Care Fan Installer Name Role Phone Nancy Ojeda MD Primary Care Provider [phone] Encounter Details Date Type Department Care Team (Late st Contact Info) Description 10/28/2024 Telephone Adult Medicine [address] [phone] Jen Bro RN Social History Tobacco Use Types Packs/Day Years [...] Orientation Straight 11/05/2024 8: 37 AM EST documented as of this encounter Progress Notes * Jen Bro RN - 10/28/2024 5:02 PM EST I left a message for the pt to call the office at and sent her a my chart message. documented in this encounter Plan of Treatment Upcoming Encounters Date Type Department Care Team (Late st Contact Info) Description 01/26/2025 7:40 AM EDT Appointment Radiology Department - [address] [phone] 07/06/2025 3:00 PM EDT Office Visit Adult Medicine [address] [phone] Nancy Ojeda MD [address] [place] [address] documented as of this encounter Visit Diagnoses Not on filedocumented in this encounter Care Teams Fan Installer Relationship Specialty Start Date End Date Nancy Ojeda MD [address] [place] [address] PCP - General Internal Medicine 02/08/21 documented as of this encounter
--- OUTSIDE RECORDS SUMMARY | 2024-11-20 08:10 | XMS_ITS | Encounter Summary ---
Author Organization [facility] [place] [address] Care Team Providers Care Compressor House Operator Name Role Phone Nancy Ojeda MD Primary Care Provider Encounter Details Date Type Department Care Team (Late st Contact Info) Description 10/29/2024 Nurse Triage Adult Medicine [address] [phone] Jen Bro, RN Social History Tobacco Use Types Packs/Day [...] AM EST documented as of this encounter Ordered Prescriptions Prescription Sig Dispense Quantity Refills Last Filled Start Date End Date lisinopriL (PRINIVIL,ZESTRIL) 5 mg tablet Take 1 tablet (5 mg total) by mouth 1 (one) time each day. 30 each 2 10/29/2024 01/27/2025 documented in this encounter Progress Notes * Jen Bro RN - 10/29/2024 11:31 AM EST She was given home care advice as listed. She was instructed to call the office with any new or worsening symptoms or if she decides she would like an appointment to discuss her elbow pain. Reason for Disposition Elbow pain Answer Assessment - Initial Assessment Questions 1. ONSET: When did the pain start? 10/22/24 2. LOCATION: Where is the pain located? Left elbow pain 3. PAIN: How bad is the pain? (Scale 0-10; or none, mild, moderate, severe) - MILD (1-3): Doesn't interfere with normal activities. - MODERATE (4-7): Interferes with normal activities (e.g., work or school) or awakens from sleep. - SEVERE (8-10): Excruciating pain, unable to do any normal activities, unable to hold a cup of water. She rates the pain as 3/10 and describes the pain as throbbing 4. WORK OR EXERCISE: Has there been any recent work or exercise that involved this part of the body? 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 5. CAUSE: What do you think is causing the arm pain? Repetition of arm movements in her job 6. OTHER SYMPTOMS: Do you have any other symptoms? (e.g., neck pain, swelling, rash, fever, numbness, weakness) No other symptoms 7. : Is there any chance you are ? When was your last menstrual period? No. Pt is 64 Protocols used: Arm Pain-A-AH, Elbow Pain-A-AH documented in this encounter Plan of Treatment Upcoming Encounters Date Type Department Care Team (Late st Contact Info) Description 01/26/2025 7:40 AM EDT Appointment Radiology Department - [address] [phone] 07/06/2025 3:00 PM EDT Office Visit Adult Medicine [facility] - [address] [phone] Nancy Ojeda MD [address] [place] [address] documented as of this encounter Visit Diagnoses Not on filedocumented in this encounter Discontinued Medications Medication Sig Discontinue Reason Start Date End Da te lisinopriL (PRINIVIL,ZESTRIL) 5 mg tablet Take 1 tablet (5 mg total) by mouth. Reorder 07/13/2023 10/29/2024 documented as of this encounter Care Teams Compressor House Operator Relationship Specialty Start Date End Date Nancy Ojeda MD [address] [place] [address] PCP - General Internal Medicine 02/08/21 documented as of this encounter
--- OUTSIDE RECORDS SUMMARY | 2024-11-20 08:10 | XMS_ITS | Data Portability ---
Author Organization [facility], [address] Address [address] [place] [address] Care Team Providers Care Pool Coordinator Name Role Phone [facility] [place] Care Provider Assessment No assessment recorded. Plan of Treatment Reminders Order Date Submit Date Provider Last Modified By Organization Details Last Modified Time Details Appointments None record ed. Lab None record ed. Referral None record ed. Procedures None record ed. Surgeries None record ed. Imaging None record ed. Medication Orders neomyc in-mandy ymyxin -hydro grace 3.5 mg-10, 000 unit/m L-1 % ear drops, susp 023 02/06/20 23 [facility] #[id number], [address] , [place], [address], 11:32:42 Patient TargetsNo targets recorded. Patient Instructions Encounter Date Encounter Id Patient Instructions Last Modified By Organization Details Last Modified Time 02/05/2023 [id number] earache: care instructions Not available 02/05/2023 09:25:13 ear infection (otitis media): care instructions Not available 02/05/2023 09:25:13 Water in the ear , from swimming or bathing, makes the ear canal prone to infection. Hot and humid weather also predisposes to infection. Symptoms of otitis externa include: ear pain, fullness or itching in the ear, ear drainage, and temporary loss of hearing. These symptoms are similar to those caused by otitis media (middle ear infection). To differentiate between external ear infection and middle ear infection, the provider looks in the ear with an instrument called an otoscope. It is important to distinguish between the two infections, as they are treated differently: External otitis is treated with drops in the ear canal, while middle ear infection is sometimes treated with an antibiotic by mouth. MEASURES YOU SHOULD TAKE TO HELP TREAT EXTERNAL EAR INFECTION: 1. Use the ear drops regularly, as directed on the prescription. 2. The shannon to treatment is getting the drops down into the canal and keeping the medicine there. To accomplish this: Lie on your side, with the unaffected ear down. Put three to four drops in the infected ear canal, then gently pull the outer ear back and forth several times, working the medicine deeper into the ear canal. Remain still, zrhg-lzr-xesw-down for about 15 minutes. 3. Keep the ear as dry as possible. Swimming should be postponed until the infection has cleared. Try to avoid getting water in the ear when bathing. If water does get in the ear, the canal can be gently dried with a hair blow dryer. Use the low heat setting, and keep the blow dryer about six inches from the ear. 4. Ipdr-xjp-bcpdege pain medications can relieve discomfort associated with external otitis. Acetaminophen (Tylenol), ibuprofen, or naproxen can be taken, depending on individual preference. 5. Return to the [facility] in about one week. The provider can check to make sure the infection has cleared, continue the medicine if needed, okay a return to swimming, etc. 6. To prevent repeated episodes of otitis externa, try to keep the ear canal dry. Gentle swabbing with Q-tips (never deep into the canal), along with a hair blow dryer (low heat), can be used to dry the ear canal if it gets wet. 7. Should you develop severe pain, fever, severe headache, or stiff neck, see your personal/referral doctor or go to the closest emergency department promptly. Otitis externa does not normally cause these symptoms; another problem, requiring different treatment, could be present Not available 02/05/2023 09:25:12 Reason for Referral None Reported. Problems Name Problem SNOMED Code Status Onset Date Resolution Date Notes Provider Name and Address Organization Details Recorded Time Hypertensive disorder 53219593 Active 2022 [facility] 09:04:08 History of calculus of kidney 846325800 Active 2022 [facility] [employer] [facility] 3 09:04:25 Problem Notes None recorded. Procedures Surgical History Date Name Laterality Status Provider Name and Address Organization Details Recorded Time 0 open stone operation on kidney or renal pelvis completed CRESENCIO ESPINOZA [facility] 02/05/2023 09:05:41 Imaging Results None recorded. Procedure Notes None recorded. Medical Equipment None Reported. Allergies Allergen ID Allergen Name Allergen Category Reaction Reaction Severity Criticality Documentation Date Start Date Code Code System Note Provider Name and Address Organization Details Recorded Time 322521 Substance with sulfonami de structure and antibacte rial mechanism of action (substanc e) medicatio n myalgias (muscle pain) Not available Not available 02/05/2023 09999 8003 SNOMED CRESENCIO smith [facility] [employer] [facility] 3 09:03:02 Medications Name Sig Start Date Stop Date Status Note LastModified by Organization Details LastModified Time cephalexin 500 mg capsule TAKE 1 CAPSULE BY MOUTH THREE TIMES DAILY FOR 7 DAYS 02/05 completed Not Available Not Available Not Available lisinopril 5 mg tablet TAKE 1 TABLET BY MOUTH AT BEDTIME active Not Available Not Available No t Available neomycin-po lymyxin-hyd rocort 3.5 mg-10,000 unit/mL-1 % ear drops,susp INSTILL 4 DROPS INTO AFFECTED EAR(S) BY OTIC ROUTE 3 TIMES PER DAY 10 days. 2022 active Not Available Not Available Not Avai lable nitrofurant oin monohydrate /macrocryst als 100 mg capsule TAKE 1 CAPSULE BY MOUTH TWICE DAILY FOR 7 DAYS 02/05 completed Not Available Not Available Not Available Vitals Date Recorded Body height Body mass index (BMI) Body weight Respiratory rate Pain severity - 0-10 verbal numeric rating [Score] - Reported Oxygen saturation Oxygen saturation in Arterial blood by Pulse oximetry Heart rate Body temperature Systolic blood pressure Diastolic blood pressure Provider Name and Address Organization Details Last Updated DateTime 3 167.64 cm 26.8 kg/m2 33743.3 3 g 18 /min 0 98 % 98 % 96 /min 97.8 [degF] 115 mm[Hg] 80 mm[Hg] CRESENCIO ESPINOZA [facility] 3 09:07:31 Social History Question Answer Notes LastModified by Organizat ion Details LastModified Time Tobacco Smoking Status Former Smoker CRESENCIO DEPINTO null, [place] - [facility] 02/05/2023 09:05:08 What Is Your Level Of Alcohol Consumption? None Information not available 02/05/2023 When Did You Quit Smoking? 15+yearssin silvia escoto Information not available 02/05/2023 Do You Use Any Illicit Or Recreational Drugs? No Information not available 02/05/2023 Have You Recently Traveled Abroad? No Information not available 02/05/2023 Do You Or Have You Ever Used Any Other Forms Of Tobacco Or Nicotine? No Information not available 02/05/2023 Sex: Unknown Functional Status None recorded. Mental Status None recorded. Family History Relationship Description Onset Age of this Age Resolved Age Notes LastModified by Organization Details LastModified Time Father No current problems or disability Not available 02/05 09:04:27 Mother No current problems or disability Not available 02/05 09:04:27 Medical History No medical history recorded. Gynecological History Statement/Question Response Date of LMP Is there any chance of ? No LMP Definite Obstetrics History GPAL:G 0 P 0 0 0 0 Immunizations Vaccine Type Date Status Note Provider Nam e and Address Organization Details Recorded Time Influenza, MDCK, quadrivalent, PF 1 completed CRESENCIO DEPINTO null, [place] - [facility] 02/05/2023 09:02:26 Influenza, MDCK, quadrivalent, PF 9 completed CRESENCIO DEPINTO null, PA - [facility] 02/05/2023 09:02:26 Influenza, MDCK, quadrivalent, PF 2 completed CRESENCIO DEPINTO null, PA - [facility] 02/05/2023 09:02:26 Influenza, MDCK, quadrivalent, preservative 8 completed CRESENCIO DEPINTO null, [place] - [facility] 02/05/2023 09:02:26 COVID-19, mRNA, LNP-S, PF, 30 mcg/0.3 mL dose 1 completed CRESENCIO DEPINTO null, PA - [facility] 02/05/2023 09:02:26 COVID-19, mRNA, LNP-S, PF, 30 mcg/0.3 mL dose 1 completed CRESENCIO DEPINTO null, PA - [facility] 02/05/2023 09:02:26 COVID-19, mRNA, LNP-S, PF, 30 mcg/0.3 mL dose, petra-sucrose 2 completed CRESENCIO DEPINTO null, PA - [facility] 02/05/2023 09:02:26 Tdap 3 completed CRESENCIO DEPINTO null, [place] - [facility] 02/05/2023 09:02:26 Influenza, split virus, trivalent, preservative 5 completed CRESENCIO DEPINTO null, PA - [facility] 02/05/2023 09:02:26 Td (adult), 2 Lf tetanus toxoid, preservative free, adsorbed 6 completed CRESENCIO DEPINTO null, [place] - [facility] 02/05/2023 09:02:26 Past Encounters Encounter ID Performer Location Encounter Start Date Encounter Closed Date Diagnosis/Indication Diagnosis SNOMED-CT Code Diagnosis ICD10 Code Diagnosis Note [id number] [address] [facility] [address] [place] [address] 12/19/2020 10:35:36 12/19/2020 15:17:48 [id number] Alan Memo, BRIDGE TENDER [address] [facility] [address] [place] [address] 02/05/2023 08:42:19 02/05/2023 09:27:25 Otitis externa of bilateral ears 9056571125 715025 H60.93 Health Concerns Section Related Observation LastModified by Organization Detai ls LastModified Time None Recorded Concern Status LastModified by Organization Details LastModified Time None Recorded Advance Directives Directive None Recorded Payers Encounter Date Sequence Insurance Name Policy Number Policy Mccrary Covered Member ID Mccrary Member ID Guarantor Name 12/19/[address] [facility] Kristie Galan [id number] Kristie Galan 02/05/2023 1 [facility] [id number] Kristie Galan [id number] Kristie Galan Notes Date Note Type Note Provider Name and Address Organization Details Recorded Time 02/05/2023 text/html Ear Pain Brief HPIReported bypatient.Location :right Onset/Timing:start ed 6days ago; intermittent pain Duration:occurs daily; sensation/episode variable length; constant pain Quality:no itching; no discharge from the ears; no burning;aching pain;deep pain Severity:getting worse; no fever; able to perform daily activities; no interference with sleep Context:no recent trauma; no recent ear infection; no recent swimming; no immunocompromise; no dental problems; no recent airplane travel; no scuba diving; non-smoker;recent URI Alleviating factors:acetaminop hen Aggravating factors:sinus infections; allergies; irrigation of ear Associated Symptoms:no cough; No decreased appetite; no discharge from ear; no nasal discharge; no hearing loss; no sore throat; no dental pain; no jaw pain; no tinnitus;jaw popping or clicking;nasal congestion;sense of fullness/pressure; no decreased hearing; no muffled hearing Alan Hampton NP [address] [place], [address], [place] - [facility] 02/05/2023 09:26:04 OBGyn Episode No OBEpisode recorded.
== END 2024-11-20 08:32 | disposition home or self-care (01) ==
PROVIDERS: Visit Provider Physician Assistant
DX: T73.3XXA Exhaustion due to excessive exertion, initial encounter (principal); H61.21 Impacted cerumen, right ear

== ENCOUNTER 2024-11-20 08:03 | Outpatient (REF) | payer OTHER, SELFPAY ==
--- OUTSIDE RECORDS SUMMARY | 2024-11-20 08:47 | XMS_ITS | Encounter Summary ---
Author Organization [facility] [place] [address] Care Team Providers Care Psychology Clinician Name Role Phone Nancy Ojeda MD Primary Care Provider [phone] Encounter Details Date Type Department Care Team (Late st Contact Info) Description 10/29/2024 Nurse Triage Adult Medicine [address] [phone] Jen Bro, RN Social History Tobacco Use [...] of the body? 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 Reorder 07/13/2023 10/29/2024 documented as of this encounter Care Teams Psychology Clinician Relationship Specialty Start Date End Date Nancy Ojeda MD [address] [place] [address] PCP - General Internal Medicine 02/08/21 documented as of this encounter
--- OUTSIDE RECORDS SUMMARY | 2024-11-20 08:47 | XMS_ITS | Encounter Summary ---
Author Organization [facility] [place] [address] Care Team Providers Care Frame Straightener Name Role Phone Nancy Ojeda MD Primary Care Provider [phone] Encounter Details Date Type Department Care Team (Late st Contact Info) Description 10/28/2024 Telephone Adult Medicine [address] [phone] Jen Bro RN Social History Tobacco Use [...] 7:40 AM EDT Appointment Radiology Department - [address] [phone] 07/06/2025 3:00 PM EDT Office Visit Adult Medicine [address] [phone] Nancy Ojeda MD [address] [place] [address] documented as of this encounter Visit Diagnoses Not on filedocumented in this encounter Care Teams Frame Straightener Relationship Specialty Start Date End Date Nancy Ojeda MD [address] [place] [address] PCP - General Internal Medicine 02/08/21 documented as of this encounter
--- OUTSIDE RECORDS SUMMARY | 2024-11-20 08:47 | XMS_ITS | Clinical Summary ---
Author Organization [facility] [place] [address] Phone Care Team Providers Care Anodizer Name Role Phone Nancy Ojeda MD Primary Care Provider [phone] Allergies Active Allergy Reactions Criticality Noted Date Comments Cat Dander 05/28/2012 Other 05/28/2012 Sulfa (Sulfonamide Antibiotics) 03/2005 Medications CRANBERRY ORAL Take by mouth. Active cejbc-1s-mlj-ep a-fish oil-D3 (Fish Oil-Vit D3) 360 mg-1,200 [...] Overview (11/14/2023): 8 mm on CTA 09/13/2020 ([facility]) Lone atrial fibrillation 10/06/2019 Overview (11/14/2023): Last [...] Team Description 10/29/2024 Nurse Triage Adult Medicine [address] [phone] Jen Bro, RN 10/28/2024 Telephone Adult Medicine [address] [phone] Jen Bro, RN from Last 3 Months [...] yrs OTHER SURGICAL HISTORY 10/23/2019 Right PROCEDURE: [place] PERQ NL/PL LITHOTRP SIMPLE UP TO 2 [...] seeing dermatology Urolithiasis DX:Urolithiasis; COMMENT: s/p [place]otri[place] [facility] [place], stable Abnormal glandular Papanicol aou [...] 7:40 AM EDT Appointment Radiology Department - [address] [phone] 07/06/2025 3:00 PM EDT Office Visit Adult Medicine South [address] [phone] Nancy Ojeda MD [address] [place] [address] Health Maintenance Due Date Last Done Comments [...] cancer risk category Low (<15%) Procedure Note mAy Dumont MD - 04/28/2024 This is a [...] Final Result * Lipid panel (12/04/2022) Pathologist [facility] Triglycerides 99 mg/dL Cholesterol 49 mg/dL HDL 80 mg/dL LDL Cholesterol 1.9 mg/dL Blood Venous blood specimen / Unknown Historical Provider LAB BLOOD ORDERABLES Dilia l Result * Colonoscopy (01/14/2018) Pathologist [facility] Colonoscopy normal Comment:normal Anatomical Region Laterality Modality Other Historical Provider HEALTH MAINTENANCE Final Result from Last 3 Months or Most Recently Relevant to Health Maintenance Care Teams Anodizer Relationship Specialty Start Date End Date Nancy Ojeda MD [address] [place] [address] PCP - General Internal Medicine 02/08/21
== END 2024-11-20 08:04 | disposition home or self-care (01) ==
LOC: HO.LAB 08:03
DX: Z13.89 Encounter for screening for other disorder (principal)